=== PATIENT | female | born 1970 | race African-American/Black ===

== ENCOUNTER 2017-08-29 12:10 | Emergency (ER) | payer MEDICARE, OTHER, MEDICAID ==
[~2017-08-29] VITALS: Ht 180.3 cm; Wt 100.0 kg
[2017-08-29 12:35] VITALS: BP 168/96; PULSE 74; RESP 20; TEMP 98.6; O2SAT 98
[2017-08-29] MEDS ORDERED: diphenhydrAMINE HCL 50 MG/ML VIAL IV PUSH ONE (12:45)
[2017-08-29] MEDS ORDERED: methylPREDNISolone SOD SUCC 125 MG/2 ML VIAL IV PUSH ONE (12:45)
[2017-08-29 12:49] VITALS: BP 164/105; PULSE 69; RESP 21; O2SAT 99
--- NOTE | 2017-08-29 12:49 | PD ---
HPI Chief Complaint: Allergic/Adverse Reaction Time Seen by Provider: 12:42 Travel History International Travel<30 days: No Contact w/Intl Traveler<30days: No Traveled to known affect area: No History of Present Illness HPI 87-year-old female with history of hypertension and diabetes presents emergency department for evaluation after being stung on the lip by a wasp. Patient states she has never been stung before. Immediately her lower lip began to swell and her face is now began to swell. She states it feels like she might be becoming short of breath. She denies any chest tightness. She is uncertain of her tongue is swelling. She is able to swallow. She has not taken anything prior to arrival. She has no other symptoms to report. [facility] Past Medical History Diabetes: Yes (type 2 metfromin) ?: Not LMP: 3 days ago Social History Tobacco Use: No Allergies-Medications (Allergen,Severity, Reaction): Coded Allergies: Penicillins (Verified Allergy, Unknown, RASHES, 08/29/17) Reported Meds & Prescriptions Reported Meds & Active Scripts Active Reported Losartan (Losartan Potassium) 25 Mg Tab 25 Mg PO DAILY Carvedilol 25 Mg Tab 25 Mg BID Metformin (Metformin HCl) 1,000 Mg Tab 1,000 Mg PO BIDPC Review of Systems Except as stated in HPI: all other systems reviewed are Neg Physical Exam Narrative GENERAL: Well-nourished female patient, in no acute distress SKIN: Focused skin assessment warm/dry. HEAD: Atraumatic. Normocephalic. EYES: Pupils equal and round. No scleral icterus. No injection or drainage. ENT: No nasal bleeding or discharge. Mucous membranes pink and moist. The lower lip is edematous primarily on the left side where the patient was done. Edema does extend into the cheek and chin. Tongue is not swollen. There is no uvular edema or deviation. NECK: Trachea midline. No JVD. No stridor CARDIOVASCULAR: Regular rate and rhythm. No murmur appreciated. RESPIRATORY: No accessory muscle use. Clear to auscultation. Breath sounds equal bilaterally. GASTROINTESTINAL: Abdomen soft, non-tender, nondistended. Hepatic and splenic margins not palpable. MUSCULOSKELETAL: No obvious deformities. No clubbing. No cyanosis. No edema. NEUROLOGICAL: Awake and alert. No obvious cranial nerve deficits. Motor grossly within normal limits. Normal speech. PSYCHIATRIC: Appropriate mood and affect; insight and judgment normal. Data Data Last Documented VS Vital Signs Date Time Temp Pulse Resp B/P (MAP) Pulse Ox O2 Delivery O2 Flow Rate FiO2 08/29/17 13:08 67 168/109 08/29/17 12:49 21 99 08/29/17 12:35 98.6 Orders Orders Iv Access Insert/Monitor (08/29/17 12:44) Methylprednisolone So Succ Inj (Solumedr (08/29/17 12:45) Diphenhydramine Inj (Benadryl Inj) (08/29/17 12:45) Ecg Monitoring (08/29/17 12:54) Oximetry (08/29/17 12:54) Sodium Chloride 0.9% Flush (Ns Flush) (08/29/17 13:00) Epinephrine (1:1000) Inj (Adrenalin (1:1 (08/29/17 13:00) Sodium Chlor 0.9% 1000 Ml Inj (Ns 1000 M (08/29/17 13:00) MDM Medical Decision Making Medical Screen Exam Complete: Yes Emergency Medical Condition: Yes Medical Record Reviewed: Yes Differential Diagnosis Local reaction versus angioedema versus anaphylaxis Narrative Course 47-year-old female presents emergency department for evaluation after being stung in the lower lip by a wasp. Patient has edema of the lower lip and left side of her face. She is given IV Solu-Medrol and Benadryl. Patient does report sensation as though she may be having a difficult time breathing. I discussed this with my attending physician who is also assessed the patient. patient will be given epinephrine. 1400 patient's edema has decreased. Lips still remains quite swollen when a wasp on her. Her facial edema has gone. She reports no sensation of difficulty breathing. Her vital signs have remained stable. Diagnosis Primary Impression: Wasp sting Qualified Codes: T63.461A - Toxic effect of venom of wasps, accidental ( unintentional), initial encounter Additional Impression: Local reaction to bee sting Qualified Codes: T63.441A - Toxic effect of venom of bees, accidental ( unintentional), initial encounter Referrals: Primary Care Physician Patient Instructions: General Instructions, Insect Bite or Sting (ED) Additional Instructions: Benadryl 25 mg by mouth every 6 hours for the next 3 days Follow-up with a primary care provider Carry EpiPen with you and if you are stung again, you may need to use this. If you do use it come immediately to the emergency department following use Return immediately with any acute worsening symptoms. Med/Other Pt SpecificInfo: Prescription(s) given Scripts Epinephrine Inj (Epipen 2-Rom Inj) 0.3 Mg/0.3 Ml Pfpen 0.3 MG SQ ONCE Y for ALLERGIC REACTION, #1 PACK 0 Refills Prov: Xi Durant 08/29/17 Disposition: 01 DISCHARGE HOME Condition: Stable Xi Durant Aug 29, 2017 12:49
[2017-08-29] MEDS ORDERED: METF1000 PO (12:57)
[2017-08-29] MEDS ORDERED: LOSA25TA PO (12:57)
[2017-08-29] MEDS ORDERED: CARV25TA (12:57)
[2017-08-29] MEDS ORDERED: EPINEPHrine HCL (1:1000) 1 MG/ML VIAL IM ONE (13:00)
[2017-08-29] MEDS ORDERED: SODIUM CHLOR 0.9% 1000 ML INJ 1,000 ML IV ONE (13:00)
[2017-08-29] MEDS ORDERED: SODIUM CHLORIDE 0.9% FLUSH 10 ML FLUSH IV FLUSH PRN (13:00)
[2017-08-29 13:08] VITALS: BP 168/109; PULSE 67
--- NOTE | 2017-08-29 14:48 | PD ---
Physical Exam Narrative I, Dr. Doty, have reviewed the advance practice practitioner's documentation and am in agreement, met with the patient face to face, made the diagnosis, and the medical decision making was done by me. *My assessment and Findings: Local reaction to wasp sting vs. anaphylaxis 47yo F with left lower lip swelling after getting stung by a wasp. Said she feels like her throat is tightening. Denies any sob, chest pain, n/v, abdominal pain. Uvula is midline on exam with no edema. Left lower lip and left face is edema. Lungs are clear. Pt given methylprednisolone, diphenhydramine, epinephrine. Pt reevaluated at bedside and left lip swelling has improved significantly. Still with some left facial swelling. Speaking in complete sentences. Will observe for a little longer and give return precautions. Data Data Last Documented VS Vital Signs Date Time Temp Pulse Resp B/P (MAP) Pulse Ox O2 Delivery O2 Flow Rate FiO2 08/29/17 13:08 67 168/109 08/29/17 12:49 21 99 08/29/17 12:35 98.6 Orders Orders Iv Access Insert/Monitor (08/29/17 12:44) Methylprednisolone So Succ Inj (Solumedr (08/29/17 12:45) Diphenhydramine Inj (Benadryl Inj) (08/29/17 12:45) Ecg Monitoring (08/29/17 12:54) Oximetry (08/29/17 12:54) Sodium Chloride 0.9% Flush (Ns Flush) (08/29/17 13:00) Epinephrine (1:1000) Inj (Adrenalin (1:1 (08/29/17 13:00) Sodium Chlor 0.9% 1000 Ml Inj (Ns 1000 M (08/29/17 13:00) Ed Discharge Order (08/29/17 16:18) [facility] Supervised Visit with BEATRIS: Yes Diagnosis Primary Impression: Wasp sting Qualified Codes: T63.461A - Toxic effect of venom of wasps, accidental ( unintentional), initial encounter Scripts Epinephrine Inj (Epipen 2-Rom Inj) 0.3 Mg/0.3 Ml Pfpen 0.3 MG SQ ONCE Y for ALLERGIC REACTION, #1 PACK 0 Refills Prov: Xi Durant 08/29/17 So Doty DO Aug 29, 2017 14:48
[2017-08-29] MEDS ORDERED: EPIP0.3I SQ (15:41)
== END 2017-08-29 17:00 | disposition home or self-care (01) ==
LOC: NEPC 12:10
DX: T63.461A Toxic effect of venom of wasps, accidental (unintentional), initial encounter (principal); E11.9 Type 2 diabetes mellitus without complications; I10 Essential (primary) hypertension; Z79.84 Long term (current) use of oral hypoglycemic drugs
CPT/HCPCS: 96372; 96374; 96375; 99284; J0171; J1200; J2930; J7030